=== PATIENT | female | born 1975 | race African-American/Black ===

== ENCOUNTER 2016-05-18 18:32 | Emergency (ER) | payer OTHER ==
[2016-05-18 18:55] VITALS: BMI 28.3
[2016-05-18] MEDS ORDERED: KETOROLAC TROMETHAMINE 60 MG/2 ML VIAL IM ONE (19:43)
[2016-05-18] MEDS ORDERED: predniSONE 20 MG TABLET (UD) PO ONE (19:44)
[2016-05-18] MEDS ORDERED: KETOROLAC TROMETHAMINE 60 MG/2 ML VIAL ONE (19:47)
[2016-05-18] MEDS ORDERED: predniSONE 20 MG TABLET (UD) ONE (19:47)
--- NOTE | 2016-05-18 20:11 | PDOC ---
History of Present Illness - History of Present Illness Initial Comments: 05/18/16 20:13 Patient is a 41 year old female with significant medical hx of fibromyalgia, thrombophilia, ankylosing spondylitis who is presenting to the ED with ankylosing spondylitis flare for the past 24 hours. Patient complains of progressive pain that is diffusely spread from her neck down. She rates it 10/ 10 in severity and characterizes it as sharp and stabbing. Her pain worsens with movement, specifically when she lies down. The patient taking her celebrex this morning and ibuprofen but denies any relief. The patient also notes she saw her PCP a few weeks ago and was found to have elevated liver enzymes. Denies fever, chills, nausea, vomiting, shortness of breath. Oven Unloader: Bunny Garcia MD PCP: Nicholas Coates MD <Yin Ingram - Last Filed: 05/18/16 20:13> <Mariola Velasco - Last Filed: 05/19/16 00:38> - General Chief Complaint: Pain Stated Complaint: BODY PAIN Time Seen by Provider: 05/18/16 19:28 Past History <Yin Ingram - Last Filed: 05/18/16 20:13> - Past Medical History Other medical history: THROMBOPHELIA, ANKLING SPONDYLOSIS - Psycho/Social/Smoking Cessation Hx Anxiety: No Suicidal Ideation: No Smoking History: Never smoked Hx Alcohol Use: No Drug/Substance Use Hx: No Substance Use Type: None <Mariola Velasco - Last Filed: 05/19/16 00:38> - Past Medical History Allergies/Adverse Reactions: Allergies Allergy/AdvReac Type Severity Reaction Status Date / Time No Known Allergies Allergy Verified 05/18/16 18:55 Home Medications: Ambulatory Orders Ketorolac Tromethamine [Toradol] 10 mg PO Q6H #28 tablet 05/18/16 Methylprednisolone [Medrol Dose Pankaj] 4 mg PO ASDIR #21 tablet 05/18/16 Review of Systems - Review of Systems Comments:: 05/18/16 20:15 CONSTITUTIONAL: Absent: fever, chills, diaphoresis, generalized weakness, malaise, loss of appetite HEENT: Absent: rhinorrhea, nasal congestion, throat pain, throat swelling, difficulty swallowing, mouth swelling, ear pain, eye pain, visual changes CARDIOVASCULAR: Absent: chest pain, syncope, palpitations, irregular heart rate, lightheadedness , peripheral edema RESPIRATORY: Absent: cough, shortness of breath, dyspnea with exertion, orthopnea, wheezing, stridor, hemoptysis GASTROINTESTINAL: Absent: abdominal pain, abdominal distension, nausea, vomiting, diarrhea, constipation, melena, hematochezia GENITOURINARY: Absent: dysuria, frequency, urgency, hesitancy, hematuria, flank pain, genital pain MUSCULOSKELETAL: Present: generalized pain Absent: joint swelling SKIN: Absent: rash, itching, pallor HEMATOLOGIC/IMMUNOLOGIC: Absent: easy bleeding, easy bruising, lymphadenopathy, frequent infections ENDOCRINE: Absent: unexplained weight gain, unexplained weight loss, heat intolerance, cold intolerance NEUROLOGIC: Absent: headache, focal weakness or paresthesia, dizziness, unsteady gait, seizure, mental status changes, bladder or bowel incontinence. PSYCHIATRIC: Absent: anxiety, depression, suicidal or homicidal ideation, hallucinations <Esthela Ingrama - Last Filed: 05/18/16 20:13> *Physical Exam - Vital Signs Last Vital Signs Temp Pulse Resp BP Pulse Ox 98.2 F 69 20 112/71 100 05/18/16 18:52 05/18/16 18:52 05/18/16 18:52 05/18/16 18:52 05/18/16 18:52 - Physical Exam Comments: 05/18/16 20:19 GENERAL: Uncomfortable appearing. Well developed, well nourished. Awake and alert. HEENT: Normocephalic, atraumatic. PERRLA, EOMI. No conjunctival pallor. Sclera are non- icteric. Moist mucous membranes. Oropharynx is clear. NECK: Supple. Full ROM. No JVD. Carotid pulses 2+ and symmetric, without bruits. No thyromegaly. No lymphadenopathy. CARDIOVASCULAR: Regular rate and rhythm. No murmurs, rubs, or gallops. Distal pulses are 2+ and symmetric. PULMONARY: No evidence of respiratory distress. Lungs clear to auscultation bilaterally. No wheezing, rales or rhonchi. ABDOMINAL: Soft. Non-tender. Non-distended. No rebound or guarding. No organomegaly. Normoactive bowel sounds. MUSCULOSKELETAL: Normal range of motion at all joints. No bony deformities or tenderness. No CVA tenderness. EXTREMITIES: No cyanosis. No clubbing. No edema. No calf tenderness. SKIN: Warm and dry. Normal capillary refill. No rashes. No jaundice. NEUROLOGICAL: Alert, awake, appropriate. Cranial nerves 2-12 intact. Normal speech. Gait is normal without ataxia. PSYCHIATRIC: Cooperative. Good eye contact. Appropriate mood and affect. <Yin Ingram - Last Filed: 05/18/16 20:13> - Vital Signs Last Vital Signs Temp Pulse Resp BP Pulse Ox 98.2 F 69 20 112/71 100 05/18/16 18:52 05/18/16 18:52 05/18/16 18:52 05/18/16 18:52 05/18/16 18:52 <Mariola Velasco - Last Filed: 05/19/16 00:38> ED Treatment Course - Medications Given in the ED: ED Medications Discontinued Medications Generic Name Dose Route Start Last Admin Trade Name Freq PRN Reason Stop Dose Admin Ketorolac Tromethamine 60 mg 05/18/16 19:43 05/18/16 19:48 Toradol Injection - IM 05/18/16 19:44 60 mg ONCE ONE Administration Prednisone 40 mg 05/18/16 19:44 05/18/16 19:49 Deltasone - PO 05/18/16 19:45 40 mg ONCE ONE Administration <Yin Ingram - Last Filed: 05/18/16 20:13> - Medications Given in the ED: ED Medications Discontinued Medications Generic Name Dose Route Start Last Admin Trade Name Freq PRN Reason Stop Dose Admin Ketorolac Tromethamine 60 mg 05/18/16 19:43 05/18/16 19:48 Toradol Injection - IM 05/18/16 19:44 60 mg ONCE ONE Administration Prednisone 40 mg 05/18/16 19:44 05/18/16 19:49 Deltasone - PO 05/18/16 19:45 40 mg ONCE ONE Administration <Mariola Velasco - Last Filed: 05/19/16 00:38> Medical Decision Making - Medical Decision Making 05/18/16 21:19 Pt comes with complaint of spine pain and body pains; she has ankylosing spondylosis and it appears to be getting worse. Exam is WNL and pt appears well , but in mild distress. 05/19/16 00:36 Pt feeling better and she will be asked to follow with her PMD <Mariola Velasco - Last Filed: 05/19/16 00:38> *DC/Admit/Observation/Transfer - Attestations Scribe Attestion: 05/18/16 20:20 Documentation prepared by Yin Ingram, acting as medical center manager for Mariola Velasco MD. <Yin Ingram - Last Filed: 05/18/16 20:13> <Mariola Velasco - Last Filed: 05/19/16 00:38> Diagnosis at time of Disposition: Ankylosing spondylitis, Chronic pain - Discharge Dispostion Disposition: HOME Condition at time of disposition: Stable - Prescriptions Prescriptions: Methylprednisolone [Medrol Dose Pankaj] 4 mg PO ASDIR #21 tablet Ketorolac Tromethamine [Toradol] 10 mg PO Q6H #28 tablet - Referrals Referrals: Nicholas Coates MD [Primary Care Provider] - - Patient Instructions Printed Discharge Instructions: DI for Ankylosing Spondylitis
[2016-05-18 21:42] VITALS: BP 124/80; PULSE 82; TEMP 98.3
== END 2016-05-18 21:41 | disposition home or self-care (01) ==
LOC: JER 18:32
PROC: 3E0233Z Introduction of Anti-inflammatory into Muscle, Percutaneous Approach (ICD-10-PCS; principal; 2016-05-18)
DX: M45.0 Ankylosing spondylitis of multiple sites in spine (principal); M79.7 Fibromyalgia; D68.59 Other primary thrombophilia
CPT/HCPCS: 99283-25